=== PATIENT | female | born 1985 | race Caucasian/White ===

== ENCOUNTER 2017-06-25 18:42 | Inpatient (IN) | payer BC ==
[2017-06-25] MEDS ORDERED: LORazepam 1 MG TAB PO STA (19:27)
--- NOTE | 2017-06-25 19:58 | ED ---
General Adult HPI - General Chief complaint: Psychiatric Symptoms Stated complaint: Manic Time Seen by Provider: 06/25/17 18:57 Source: patient Mode of arrival: ambulatory Limitations: no limitations - History of Present Illness Initial comments: Candelaria is a 31-year-old female with past medical history of bipolar and depression who presents to the emergency department today for evaluation of a manic episode. The patient reports that for the past week she has been feeling very high, she reports that she feels overwhelming low been having a store that everybody. She reports that she has been feeling very anxious and agitated, she feels that her heart is racing. She states that she has been acting otherwise is not typical for her. She states that she has been taking extra xanax but feels as though she cannot calm down. She states that she has spent $ 600 this weekend, which is out of character for her. She states that she isnt her self or in control of her emotions and she wants help. - Related Data Home Medications Medication Instructions Recorded Confirmed Loperamide [Imodium] 2 mg PO DIRECTED PRN 07/02/15 06/25/17 Mirtazapine [Remeron] 30 mg PO HS 07/02/15 06/25/17 Omeprazole [PriLOSEC] 40 mg PO DAILY 07/02/15 06/25/17 ALPRAZolam [Xanax] 0.5 mg PO DAILY PRN 06/25/17 06/25/17 ARIPiprazole [Abilify] 5 mg PO DAILY 06/25/17 06/25/17 Allergies Allergy/AdvReac Type Severity Reaction Status Date / Time No Known Allergies Allergy Verified 06/25/17 21:23 Review of Systems ROS Statement: Those systems with pertinent positive or pertinent negative responses have been documented in the HPI. ROS Other: All systems not noted in ROS Statement are negative. Past Medical History Past Medical History: GERD/Reflux, Hypertension Additional Past Medical History / Comment(s): recovering alcoholic, Reynaud's, chronic diarrhea History of Any Multi-Drug Resistant Organisms: None Reported Additional Past Surgical History / Comment(s): egd Past Anesthesia/Blood Transfusion Reactions: No Reported Reaction Past Psychological History: Anxiety, Bipolar, Depression Smoking Status: Current every day smoker Past Alcohol Use History: None Reported Past Drug Use History: None Reported General Exam Limitations: no limitations General appearance: alert, anxious Head exam: Present: atraumatic, normocephalic Eye exam: Present: normal appearance, PERRL, EOMI ENT exam: Present: normal exam Respiratory exam: Absent: respiratory distress Cardiovascular Exam: Present: tachycardia GI/Abdominal exam: Present: soft Rectal exam: Present: deferred Extremities exam: Present: full ROM Neurological exam: Present: alert, oriented X3, normal gait Psychiatric exam: Present: agitated, anxious, manic. Absent: depressed, homicidal ideation, suicidal ideation Skin exam: Present: warm, dry, intact Course Vital Signs 06/25/17 06/25/17 18:50 20:45 Temperature 98 F 98 F Pulse Rate 112 H 68 Respiratory 18 18 Rate Blood Pressure 153/90 137/85 O2 Sat by Pulse 98 98 Oximetry Medical Decision Making - Medical Decision Making Patient seen and evaluated, history obtained from the patient Patient appears manic, denies suicidal or homicidal ideation Breath alcohol negative Cleared for evaluation by psych Psych evaluated the patient, recommends admission to psychiatric facility Patient voluntarily admitted herself to psychiatric facility Transfer orders placed - Lab Data Lab Results 06/25/17 06/25/17 Range/Units 18:56 18:56 Urine Color Light Yellow Urine Appearance Clear (Clear) Urine pH 6.0 (5.0-8.0) Ur Specific [place] 1.010 (1.001-1.035) Urine Protein Negative (Negative) Urine Glucose (UA) Negative (Negative) Urine Ketones Negative (Negative) Urine Blood Negative (Negative) Urine Nitrite Negative (Negative) Urine Bilirubin Negative (Negative) Urine Urobilinogen <2.0 (<2.0) mg/dL Ur Leukocyte Esterase Negative (Negative) Urine HCG, Qual Not Detected (Not Detectd) Urine Opiates Screen Not Detected (NotDetected) Ur Oxycodone Screen Not Detected (NotDetected) Urine Methadone Screen Not Detected (NotDetected) Ur Propoxyphene Screen Not Detected (NotDetected) Ur Barbiturates Screen Not Detected (NotDetected) U Tricyclic Antidepress Not Detected (NotDetected) Ur Phencyclidine Scrn Not Detected (NotDetected) Ur Amphetamines Screen Not Detected (NotDetected) U Methamphetamines Scrn Not Detected (NotDetected) U Benzodiazepines Scrn Detected H (NotDetected) Urine Cocaine Screen Not Detected (NotDetected) U Marijuana (THC) Screen Not Detected (NotDetected) Disposition Clinical Impression: Acute anxiety Disposition: TRANSFER TO PSYCH HOSP/UNIT Is patient prescribed a controlled substance at d/c from ED?: No - Out of Hospital Transfer - Req. Specs Out of Hospital Transfer - Requested Specifics: Other Non-Acute (psychiatric)
[2017-06-25 20:00] LABS: Appearance,Urine Clear (Clear); Bilirubin,Urine Negative (Negative); Blood,Urine Negative (Negative); Color,Urine Light Yellow; Glucose,Urine (UA) Negative (Negative); Ketones,Urine Negative (Negative); Leukocyte Esterase,Urine Negative (Negative); Nitrite,Urine Negative (Negative); Protein,Urine Negative (Negative); Urobilinogen,Urine <2.0 mg/dL (<2.0)
[2017-06-25 20:12] LABS: Amphetamine Screen,Urine Not Detected (NotDetected); Barbiturate Screen,Urine Not Detected (NotDetected); Benzodiazepines Screen,Urine Detected (NotDetected); Cocaine Screen,Urine Not Detected (NotDetected); Methadone Screen, Urine Not Detected (NotDetected); Opiate Screen,Urine Not Detected (NotDetected); Oxycodone Screen, Urine Not Detected (NotDetected); Phencyclidine Screen,Urine Not Detected (NotDetected); Tricyclic Antidepressant,Urine Not Detected (NotDetected); Urn Cannabinoid Scrn Not Detected (NotDetected)
[2017-06-25] MEDS ORDERED: MAGNESIUM HYDROXIDE 2,400 MG/10 ML CUP PO PRN (22:27)
[2017-06-25] MEDS ORDERED: MAG HYDROX/AL HYDROX/SIMETH 30 ML CUP PO PRN (22:27)
[2017-06-25] MEDS ORDERED: LOPERAMIDE 2 MG CAP PO PRN (22:29)
[2017-06-25] MEDS: LORazepam 1 MG TAB PO PRN (23:01)
[2017-06-26] MEDS: ACETAMINOPHEN TAB 325 MG TAB PO PRN (01:45)
[2017-06-26] MEDS: NICOTINE 7MG/24HR PATCH TRANSDERM SCH (08:21)
[2017-06-26] MEDS: PANTOPRAZOLE 40 MG TABLET PO SCH (08:21)
[2017-06-26] MEDS: LORazepam 1 MG TAB PO PRN ×2 (08:21→14:35)
[2017-06-26] MEDS: NON-FORMULARY DRUG PO SCH (08:22)
[2017-06-26] MEDS ORDERED: [UNRECOGNIZED DRUG - OTHER] PO SCH (09:00)
[2017-06-26] MEDS ORDERED: ARIPiprazole 5 MG TAB PO SCH (09:00)
[2017-06-26] MEDS ORDERED: MD COMMUNICATION TO PHARMACY 1 EACH MISC PO SCH (09:00)
[2017-06-26 09:29] LABS: Basophils % (A) 0 %; Eosinophils # (A) 0.1 k/uL (0-0.7); Eosinophils % (A) 1 %; HCT 40.9 % (34.0-46.0); HGB 13.9 gm/dL (11.4-16.0); Lymphocytes % (A) 30 %; MCH 28.7 pg (25.0-35.0); MCHC 34.1 g/dL (31.0-37.0); MCV 84.1 fL (80.0-100.0); Mean Platelet Volume 6.7; Monocytes # (A) 0.3 k/uL (0-1.0); Monocytes % (A) 4 %; Neutrophils # (A) 4.2 k/uL (1.3-7.7); Neutrophils % (A) 63 %; Platelet Count 220 k/uL (150-450); RBC 4.86 m/uL (3.80-5.40); RDW 11.8 % (11.5-15.5); WBC 6.7 k/uL (3.8-10.6)
[2017-06-26 09:41] LABS: ALT 15 U/L (9-52); AST 17 U/L (14-36); Albumin 4.2 g/dL (3.5-5.0); Alkaline Phosphatase 55 U/L (38-126); Anion Gap 13 mmol/L; Blood Urea Nitrogen 10 mg/dL (7-17); Calcium 9.4 mg/dL (8.4-10.2); Carbon Dioxide 24 mmol/L (22-30); Chloride 105 mmol/L (98-107); Cholesterol 189 mg/dL (<200); Glucose 104 mg/dL (74-99); HDL Cholesterol 56 mg/dL (40-60); LDL Cholesterol,Calculated 98 mg/dL (0-99); Potassium 4.4 mmol/L (3.5-5.1); Sodium 142 mmol/L (137-145); Total Bilirubin 0.4 mg/dL (0.2-1.3); Total Protein 6.8 g/dL (6.3-8.2); Triglycerides 175 mg/dL (<150)
--- NOTE | 2017-06-26 13:02 | CONS ---
CONSULTATION REASON FOR CONSULTATION: Advice regarding GERD, hypertension and other medical issues requested by Psychiatry. HISTORY OF PRESENT ILLNESS: This is a 31-year-old woman with a past history of GERD, hypertension, history of EtOH, Raynaud's phenomenon, IBS, chronic diarrhea, bipolar, anxiety, depression being followed by Reena Elizabeth at Dr. Freeman's office. Admitted for a psychiatric evaluation. There is no history of fever or rigors. There is no history of headache, loss of consciousness, chest pain, palpitation at this time. PAST MEDICAL HISTORY: History of GERD, hypertension, history of EtOH, history of Raynaud's phenomenon, IBS. MEDICATIONS: Prior to admission include home medications are: 1. Prilosec 20 mg p.o. daily. 2. Imodium 2 mg p.r.n. 3. Xanax 0.5 daily p.r.n. 4. Remeron 30 mg q.h.s. 5. Abilify 5 mg p.o. daily. ALLERGIES: None. FAMILY HISTORY: No history of heart disease or strokes in the family. SOCIAL HISTORY: Remote history of alcohol, history of smoking. REVIEW OF SYSTEMS: ENT: No diminished hearing or vision. CARDIOVASCULAR: No angina. RESPIRATORY: No cough or hemoptysis. GI: No nausea. : No dysuria. NERVOUS SYSTEM: No numbness or weakness. ALLERGY/IMMUNOLOGY: No asthma or hypothyroidism. MUSCULOSKELETAL: As mentioned earlier. HEMATOLOGY/ONCOLOGY: No history of anemia. ENDOCRINE: Patient has low cortisol levels, being evaluated by a automotive fuel systems converter, Dr. Dawson. CONSTITUTIONAL: As mentioned number: DERMATOLOGY: Negative. RHEUMATOLOGY: Negative. PSYCHIATRY: As mentioned earlier. PHYSICAL EXAMINATION: Alert oriented x3. Pulse is 98, blood pressure 140/80, respirations 16, temp 98.1, pulse ox 98% on room air. HEENT: Conjunctivae normal. Oral mucosa moist. Neck is no jugular venous distention. No thyroid enlargement. CARDIOVASCULAR SYSTEM: S1, S2, muffled. RESPIRATION: Breath sounds diminished at the bases. No rhonchi. No crackles. ABDOMEN: Soft, nontender. No mass palpable. LEGS: No edema, no swelling. NERVOUS SYSTEM: Higher functions as mentioned earlier. Moves all 4 limbs. No focal motor deficits. LYMPHATICS: No lymph node enlargement in the neck. SKIN: No ulcer, rash or bleeding. LABS: CBC, CMP within normal limits and triglycerides 125. TSH of 1.46. ASSESSMENT: 1. Labile hypertension. 2. Depression. 3. Gastroesophageal reflux disease. 4. Remote history of Ethyl alcohol. 5. History of nicotine dependence. 6. History of irritable bowel syndrome. 7. History of low cortisol levels. 8. Anxiety, bipolar depression. RECOMMENDATIONS AND DISCUSSION: In this 31-year-old woman who presented with multiple medical issues, at this time I recommend to continue current medical management. I would recommend resume the home medications and otherwise I would also recommend continue the patient's evaluation for low cortisol levels and hypoglycemia in the outpatient setting with automotive fuel systems converter, Dr. Dawson. Other than that, I would recommend close follow up with Reena Elizabeth in the outpatient setting. Will follow the patient closely with you. Thank you, Dr. Campbell for letting us participate in the care of this patient. MMMASOODL / MARSHALN: [id number] /
[2017-06-26] MEDS ORDERED: hydrOXYzine PAMOATE 25 MG CAP PO PRN (14:26)
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
[2017-06-26 18:54] LABS: Hemoglobin A1C 4.6 % (4.0-6.0)
[2017-06-26] MEDS: MELATONIN 3 MG TABLET PO SCH (20:44)
[2017-06-27] MEDS: NON-FORMULARY DRUG PO SCH (08:17)
[2017-06-27] MEDS: PANTOPRAZOLE 40 MG TABLET PO SCH (08:17)
[2017-06-27] MEDS: ARIPiprazole 10 MG TAB PO SCH (08:17)
[2017-06-27] MEDS: NICOTINE 7MG/24HR PATCH TRANSDERM SCH (08:17)
[2017-06-27] MEDS: ACETAMINOPHEN TAB 325 MG TAB PO PRN ×2 (08:19→17:29)
[2017-06-27] MEDS: LORazepam 1 MG TAB PO PRN ×2 (10:23→20:31)
--- NOTE | 2017-06-27 11:54 | P.PN ---
Progress Note - Text Progress Note Date: 06/27/17 Interval History: Patient is a 31-year-old female who reports that she is not feeling as depressed, states she slept about 4 hours last night was up and down to the night. She states that she continues to have racing thoughts and has trouble focusing especially when watching television. Patient states she is able to focus in groups. 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 Patient states her energy level has decreased and she is not feeling as though she needs to be up doing things constantly. Patient states that she's been attending some groups and activities. Mental Status: Appearance/Attitude: Patient is casually dressed, was found sleeping in her room and came to the interview room and was cooperative. Behavior: Patient does not display any psychomotor agitation or retardation. Speech/Language: Speech is spontaneous of normal volume and rhythm and she is coherent. Thought Process: Patient is goal-directed there is no evidence of loose association or flight of ideas, patient does state that her thoughts still race. Thought Content: Patient denies auditory or visual hallucinations and no delusions or paranoid ideation were elicited. Patient states that she didn't sleep well last night was up and down but slept about 4 hours. She states that she continues to have racing thoughts but is not feeling as though she has a lot of energy and needs to be up at night doing things. Patient reports that her appetite is good. Suicidal/Homicidal Ideation: Patient denies any current suicidal or homicidal ideation Sensorium/Cognition: Patient is alert and oriented to person, place, and time and recent and remote memory are grossly intact patient states that she continues to have difficulty focusing while watching TV but has been able to focus in groups. Mood/Affect: Patient reports that she is no longer feeling depressed and her affect is appropriate Insight/Judgment: Patient's insight and judgment are fair Assessment: Patient reports that she had difficulty sleeping last night and only slept about 4 hours but is not reporting any increase in her energy or the need to get up and do things at night. She states that she continues to have racing thoughts and difficulty focusing when she is watching television. She states that she is no longer feeling depressed and no suicidal ideation. Patient states that her difficulty sleeping is that she is always taking something to knock her out. Patient states that she had difficulty with comprehension when she was in school and was held back a year prior to first grade but was never diagnosed with ADD. Patient reports no side effects from the medication. Plan: Will continue on Abilify 10 mg to target her mood and melatonin 3 mg at bedtime to assist with sleep. Patient and I reviewed good sleep hygiene. Patient continues to require hospitalization to further stabilize her mood.
[2017-06-27] MEDS: MELATONIN 3 MG TABLET PO SCH (20:31)
[2017-06-28] MEDS: LORazepam 1 MG TAB PO PRN ×2 (01:54→12:00)
[2017-06-28 07:57] VITALS: TEMP 98.1
[2017-06-28] MEDS: NICOTINE 7MG/24HR PATCH TRANSDERM SCH (08:00)
[2017-06-28] MEDS: PANTOPRAZOLE 40 MG TABLET PO SCH (08:00)
[2017-06-28] MEDS: ARIPiprazole 10 MG TAB PO SCH (08:00)
[2017-06-28] MEDS: NON-FORMULARY DRUG PO SCH (08:03)
--- NOTE | 2017-06-28 11:56 | P.DS ---
Providers Date of admission: 06/25/17 20:31 Expected date of discharge: 06/28/17 Attending physician: Shanell Campbell MD Consults: 06/25/17 22:27 Consult Physician Routine Consulting Provider: Hannha Tobias Consult Reason/Comments: Medical Management Do you want consulting provider notified?: Yes, Notify in am Primary care physician: Augusta Gill [facility] Course: Discharge Diagnosis: Bipolar disorder type I, current episode hypomanic with mixed features Reason for Admission: Patient is a 31-year-old female who reports that she came to the hospital because she had not been sleeping for 1 week as well as spending a lot of money was up at night cleaning and felt that her medications needed to be adjusted. States she was also having suicidal thoughts. Patient states that for the last week she has not been able to sleep, she states that she has not been well-organized and has been up at night cleaning. She states that other people have reported that she's been talking too fast and she states that she impulsively spent $500 at a spot. She states that her ideas jumping from one topic to another and that she's had difficulty at work organizing herself. She states that she is paranoid that people were following her. She states that she is feeling depressed and irritable and has been having suicidal thoughts with no plan or intent to act. She describes that since the age of 18 she is been having symptoms similar to the above which she describes as periods of depression where she does not care for her ADLs, has decreased energy and motivation as well as poor sleep but feels tired. She states that those times she has had suicidal thoughts as well as feeling irritable. She states that this alternates with periods where she doesn't sleep and has a lot of energy, is up at night cleaning, with racing thoughts and impulsive spending. She also reports a history of anxiety with shortness of breath increased heart rate in fear of leaving the house. The unknown and feeling fidgety. She states that she's had suicide attempts in the past one time 7 years ago on Motrin combined with alcohol. Patient states that she was also using alcohol in the past, a fifth a day. Patient states that she has been on and off with her medication the most consistently she's ever taken meds were for 3 years. She reports being tried on Lexapro, Lamictal, Effexor, Remeron, Xanax, Klonopin, Abilify, Zoloft, Celexa and most recently her medications been prescribed by her primary care physician. She states that she was in counseling when she was 18 years of age and was placed on medication at that time. Patient states that the time she 's been placed on antidepressants she is really never felt less depressed but more agitated and irritable. She is unable to recount how she did when she was on Lamictal. She states her current medications were begun by her primary care doctor and they are Xanax 0.5 mg a day, Abilify 5 mg daily and Remeron 30 mg at bedtime. She states that 2 months ago she began seeing a counselor at [facility] and was waiting to be seen by their prescriber. Patient does not endorse any history of auditory hallucinations, visual hallucinations and no symptoms of OCD. Mental status on Admission: Appearance/Attitude: Patient is appropriately dressed, makes good eye contact and is cooperative. Behavior: Patient does not exhibit any psychomotor agitation or retardation. Speech/Language: Patient's speech is spontaneous of normal volume and rhythm and she is coherent. Thought Process: Agent is goal-directed, she does report racing thoughts and there is no evidence of loose association or flight of ideas Thought Content: Patient denies any auditory or visual hallucinations and no delusions were elicited. Patient does state that she feels paranoid that people are following him. Patient states that she has racing thoughts and jumps from one idea to another as well as not sleeping well and having a lot of energy. She states that she was up at night cleaning. She also reports that she has had an increased heart rate and feels that her eyes twitching. Patient states that she was impulsively spending money. Suicidal/Homicidal Ideation: Patient states that she has suicidal thoughts but no plan or intent to act and no current homicidal ideation Sensorium/Cognition: Patient is alert and oriented to person, place, and time and her recent and remote memory are grossly intact. Mood/Affect: Patient's mood is irritable, anxious and her affect is appropriate Insight/Judgment: Patient's insight and judgment are fair Hospital Course: Patient was admitted on a voluntary basis, placed on routine observation in group and activity therapy were ordered. Patient also had routine laboratory studies and a medical consultation. Patient and I discussed her diagnosis and the fact that while she been placed on antidepressants in the past her symptoms have worsened or she become more irritable and agitated. Patient and I discussed continuing the Abilify but increasing it to 10 mg to target her mood symptoms. Patient was also placed on melatonin 3 mg at bedtime to assist with her sleep. Patient reports that with the increase in the Abilify her racing thoughts decreased, her focus improved and she was able to read. She reported no further suicidal thoughts, her mood had improved and she was no longer feeling depressed and anxious. Patient felt that she was stable enough to return home. Patient was also continued on her Imodium as needed, and medication for GERD. Allergies No Known Allergies Allergy (Verified 06/25/17 21:23) Laboratory Last Values WBC 6.7 k/uL (3.8-10.6) 06/26/17 09:05 RBC 4.86 m/uL (3.80-5.40) 06/26/17 09:05 Hgb 13.9 gm/dL (11.4-16.0) 06/26/17 09:05 Hct 40.9 % (34.0-46.0) 06/26/17 09:05 MCV 84.1 fL (80.0-100.0) 06/26/17 09:05 MCH 28.7 pg (25.0-35.0) 06/26/17 09:05 MCHC 34.1 g/dL (31.0-37.0) 06/26/17 09:05 RDW 11.8 % (11.5-15.5) 06/26/17 09:05 Plt Count 220 k/uL (150-450) 06/26/17 09:05 Neutrophils % 63 % 06/26/17 09:05 Lymphocytes % 30 % 06/26/17 09:05 Monocytes % 4 % 06/26/17 09:05 Eosinophils % 1 % 06/26/17 09:05 Basophils % 0 % 06/26/17 09:05 Neutrophils # 4.2 k/uL (1.3-7.7) 06/26/17 09:05 Lymphocytes # 2.0 k/uL (1.0-4.8) 06/26/17 09:05 Monocytes # 0.3 k/uL (0-1.0) 06/26/17 09:05 Eosinophils # 0.1 k/uL (0-0.7) 06/26/17 09:05 Basophils # 0.0 k/uL (0-0.2) 06/26/17 09:05 Sodium 142 mmol/L (137-145) 06/26/17 09:05 Potassium 4.4 mmol/L (3.5-5.1) 06/26/17 09:05 Chloride 105 mmol/L (98-107) 06/26/17 09:05 Carbon Dioxide 24 mmol/L (22-30) 06/26/17 09:05 Anion Gap 13 mmol/L 06/26/17 09:05 BUN 10 mg/dL (7-17) 06/26/17 09:05 Creatinine 0.72 mg/dL (0.52-1.04) 06/26/17 09:05 Est GFR (CKD-EPI)AfAm >90 (>60 ml/min/1.73 sqM) 06/26/17 09:05 Est GFR (CKD-EPI)NonAf >90 (>60 ml/min/1.73 sqM) 06/26/17 09:05 Glucose 104 mg/dL (74-99) H 06/26/17 09:[address] Glu mg/dL 85 06/26/17 09:05 Hemoglobin A1c 4.6 % (4.0-6.0) 06/26/17 09:05 Calcium 9.4 mg/dL (8.4-10.2) 06/26/17 09:05 Total Bilirubin 0.4 mg/dL (0.2-1.3) 06/26/17 09:05 AST 17 U/L (14-36) 06/26/17 09:05 ALT 15 U/L (9-52) 06/26/17 09:05 Alkaline Phosphatase 55 U/L (38-126) 06/26/17 09:05 Total Protein 6.8 g/dL (6.3-8.2) 06/26/17 09:05 Albumin 4.2 g/dL (3.5-5.0) 06/26/17 09:05 Triglycerides 175 mg/dL (<150) H 06/26/17 09:05 Cholesterol 189 mg/dL (<200) 06/26/17 09:05 LDL Cholesterol, Calc 98 mg/dL (0-99) 06/26/17 09:05 HDL Cholesterol 56 mg/dL (40-60) 06/26/17 09:05 TSH 1.400 mIU/L (0.465-4.680) 06/26/17 09:05 Urine Color Light Yellow 06/25/17 18:56 Urine Appearance Clear (Clear) 06/25/17 18:56 Urine pH 6.0 (5.0-8.0) 06/25/17 18:56 Ur Specific [place] 1.010 (1.001-1.035) 06/25/17 18:56 Urine Protein Negative (Negative) 06/25/17 18:56 Urine Glucose (UA) Negative (Negative) 06/25/17 18:56 Urine Ketones Negative (Negative) 06/25/17 18:56 Urine Blood Negative (Negative) 06/25/17 18:56 Urine Nitrite Negative (Negative) 06/25/17 18:56 Urine Bilirubin Negative (Negative) 06/25/17 18:56 Urine Urobilinogen <2.0 mg/dL (<2.0) 06/25/17 18:56 Ur Leukocyte Esterase Negative (Negative) 06/25/17 18:56 Urine HCG, Qual Not Detected (Not Detectd) 06/25/17 18:56 Urine Opiates Screen Not Detected (NotDetected) 06/25/17 18:56 Ur Oxycodone Screen Not Detected (NotDetected) 06/25/17 18:56 Urine Methadone Screen Not Detected (NotDetected) 06/25/17 18:56 Ur Propoxyphene Screen Not Detected (NotDetected) 06/25/17 18:56 Ur Barbiturates Screen Not Detected (NotDetected) 06/25/17 18:56 U Tricyclic Antidepress Not Detected (NotDetected) 06/25/17 18:56 Ur Phencyclidine Scrn Not Detected (NotDetected) 06/25/17 18:56 Ur Amphetamines Screen Not Detected (NotDetected) 06/25/17 18:56 U Methamphetamines Scrn Not Detected (NotDetected) 06/25/17 18:56 U Benzodiazepines Scrn Detected (NotDetected) H 06/25/17 18:56 Urine Cocaine Screen Not Detected (NotDetected) 06/25/17 18:56 U Marijuana (THC) Screen Not Detected (NotDetected) 06/25/17 18:56 Discharge Mental Status: Appearance/Attitude: Patient is casually dressed, makes good eye contact and is cooperative. Behavior: Patient does not exhibit any psychomotor agitation or retardation. Speech/Language: Patient's speech is spontaneous and normal volume and rhythm and she is coherent. Thought Process: Patient is goal-directed there is no evidence of loose association or flight of ideas and she states her thoughts are no longer racing. Thought Content: Patient denies any auditory or visual hallucinations no delusions or paranoid ideation is elicited. Patient reports no racing thoughts states that she is able to sit and read. She reports that she is sleeping and eating well. She reports that her mood is improved and she is no longer feeling irritable or on edge. Suicidal/Homicidal Ideation: Patient denies any current suicidal or homicidal ideation. Sensorium/Cognition: patient is alert and oriented to person, place, and time and her recent and remote memory are grossly intact Mood/Affect: patient's mood is more stable, she reports no longer feeling depressed and her affect is appropriate Insight/Judgment: patient's insight and judgment are intact Risk Assessment: Patient's risk for self harm is low is interested in outpatient treatment , has maintained her sobriety Discharge Plan: patient will return home to live with her , she will continue on Abilify 10 mg in the morning and melatonin 3 mg at bedtime. I reviewed good sleep hygiene with the patient and recommended that she avoid any alcohol or drugs. Patient was encouraged to continue attending AA meetings. Patient was encouraged to follow up at [facility] and be compliant with medication and appointments. Patient Condition at Discharge: Stable Plan - Discharge Summary Discharge Rx Participant: No New Discharge Prescriptions: New ARIPiprazole [Abilify] 10 mg PO DAILY #14 tab Melatonin 3 mg PO HS #28 tablet Continue Omeprazole [PriLOSEC] 20 mg PO DAILY Loperamide [Imodium] 2 mg PO DIRECTED PRN PRN Reason: Diarrhea Non-Formulary Drug [Non Formulary Drug] 1 each PO ONCE Discontinued Mirtazapine [Remeron] 30 mg PO HS ARIPiprazole [Abilify] 5 mg PO DAILY ALPRAZolam [Xanax] 0.5 mg PO DAILY PRN PRN Reason: Anxiety Discharge Medication List Loperamide [Imodium] 2 mg PO DIRECTED PRN 07/02/15 [History] Omeprazole [PriLOSEC] 20 mg PO DAILY 07/02/15 [History] Non-Formulary Drug [Non Formulary Drug] 1 each PO ONCE 06/25/17 [History] ARIPiprazole [Abilify] 10 mg PO DAILY #14 tab 06/28/17 [Rx] Melatonin 3 mg PO HS #28 tablet 06/28/17 [Rx] Follow up Appointment(s)/Referral(s): Fabien Lindo [Outside] - 07/10/17 6:00 pm (soonest available, only in office Monday's and Monday's ) Augusta Freeman III, MD [Primary Care Provider] - 1-2 days Discharge Disposition: HOME SELF-CARE
[2017-06-28 12:10] VITALS: BP 127/82; PULSE 92; RESP 20
== END 2017-06-28 13:53 | disposition home or self-care (01) | DRG 885 ==
LOC: EC 18:42 → 3MHU 20:31
PROVIDERS: ADMIT Psychiatry & Neurology Psychiatry; ATTEND Psychiatry & Neurology Psychiatry
DX: F31.0 Bipolar disorder, current episode hypomanic (principal); R45.851 Suicidal ideations; F41.9 Anxiety disorder, unspecified; K21.9 Gastro-esophageal reflux disease without esophagitis; K58.0 Irritable bowel syndrome with diarrhea; I10 Essential (primary) hypertension; F17.200 Nicotine dependence, unspecified, uncomplicated; I73.00 Raynaud's syndrome without gangrene; Z91.5 Personal history of self-harm; Z79.899 Other long term (current) drug therapy; Z81.8 Family history of other mental and behavioral disorders
CPT/HCPCS: 80053; 80061; 80306; 81003; 81025; 82075; 83036; 84443; 85025; 99285

== ENCOUNTER → 2018-01-09 | Outpatient (CLI) | payer BC | END | disposition home or self-care (01) | LOC: LABWHC1 16:19 | PROVIDERS: ATTEND Physician Assistant Medical | DX: Z53.9 Procedure and treatment not carried out, unspecified reason (principal) ==

== ENCOUNTER → 2018-01-09 | Outpatient (CLI) | payer BC ==
[2018-01-09 09:07] LABS: Basophils % (A) 0 %; Eosinophils # (A) 0.1 k/uL (0-0.7); Eosinophils % (A) 2 %; HCT 43.8 % (34.0-46.0); HGB 14.6 gm/dL (11.4-16.0); Lymphocytes # (A) 2.1 k/uL (1.0-4.8); Lymphocytes % (A) 32 %; MCH 28.1 pg (25.0-35.0); MCHC 33.3 g/dL (31.0-37.0); MCV 84.2 fL (80.0-100.0); Mean Platelet Volume 6.2; Monocytes # (A) 0.2 k/uL (0-1.0); Monocytes % (A) 3 %; Neutrophils % (A) 61 %; Platelet Count 239 k/uL (150-450); RDW 12.4 % (11.5-15.5); WBC 6.6 k/uL (3.8-10.6)
--- NOTE | 2018-01-09 13:05 | XR ---
EXAMINATION TYPE: XR chest 2V DATE OF EXAM: 01/09/2018 COMPARISON: Prior chest x-ray 12/18/2012 HISTORY: Insomnia TECHNIQUE: Frontal and lateral views of the chest are obtained. FINDINGS: There is no focal air space opacity, pleural effusion, or pneumothorax seen. The cardiac silhouette size is within normal limits. The osseous structures are intact. IMPRESSION: No acute cardiopulmonary process.
[2018-01-09 18:03] LABS: DNA Double-Stranded NEGATIVE (NEGATIVE); EBV-VCA (IgG) <0.2 AI
[2018-01-09 18:23] LABS: Protein, Total 6.7 g/dL (6.2-8.2); Rheumatoid Factor 7 IU/mL (0-15)
[2018-01-09 18:31] LABS: ALT 21 U/L (8-44); AST 20 U/L (13-35); Alkaline Phosphatase 76 U/L (41-126); C Reactive Protein <0.4 mg/dL (0.0-0.8); Calcium 9.4 mg/dL (8.7-10.3); Carbon Dioxide 23.8 mmol/L (21.6-31.8); Chloride 106 mmol/L (96-109); Glucose 86 mg/dL (70-110); Potassium 4.7 mmol/L (3.5-5.5); Sodium 139 mmol/L (135-145); Total Bilirubin 0.4 mg/dL (0.3-1.2); Total Protein 6.6 g/dL (6.2-8.2)
[2018-01-09 19:16] LABS: Vitamin D 25 Hydroxy 8.1 ng/mL (30.0-100.0)
[2018-01-10 13:34] LABS: Albumin 4.22 g/dL (3.80-4.90); Gamma Globulin 0.77 g/dL (0.70-1.50)
[2018-01-11 08:43] LABS: Vitamin B1 75 ug/L (38-122)
[2018-01-12 09:36] LABS: Bartonella henselae Ab, IgG <1:64; Bartonella henselae Ab, IgM < 1:16
== END | disposition home or self-care (01) ==
LOC: LABWHC1 07:56
PROVIDERS: ATTEND Physician Assistant Medical
DX: R50.9 Fever, unspecified (principal); G47.00 Insomnia, unspecified
CPT/HCPCS: 36415; 71046; 80053; 82175; 82306; 82533; 82728; 84080; 84165; 84425; 85025; 86140; 86225; 86431; 86611; 86644; 86645; 86663; 86664; 86665; 87086

== ENCOUNTER 2018-09-02 17:41 | Emergency (ER) | payer BC ==
[2018-09-02 18:44] VITALS: RESP 18
[2018-09-02] MEDS ORDERED: SODIUM CHLORIDE 0.9% 1,000 ML IV STA (19:26)
--- NOTE | 2018-09-02 19:52 | ED ---
Abdominal Pain HPI - General Source: patient Mode of arrival: ambulatory Limitations: no limitations <Safia Vance - Last Filed: 09/02/18 22:54> <Candelaria Cardenas - Last Filed: 09/04/18 06:08> - General Chief Complaint: Abdominal Pain Stated Complaint: Black diarrhea Time Seen by Provider: 09/02/18 19:03 - History of Present Illness Initial Comments: Patient is a 32-year-old female with past history of IBS presented to the emergency Department with complaints of diarrhea for the last 5 days. Patient states the last few days her diarrhea was black in color. Patient states been having generalized abdominal pain as well as nausea on and off. Patient denies nausea at this time. Patient states she usually does not have diarrhea for this long. Patient denies any recent changes in her medications. Patient denies recent travel, recent antibiotic use. Patient states she has been eating the BRAT diet the last 3 days and its not helping. Patient denies any fever, chills, chest pain. Patient denies any abdominal surgeries in the past. No other complaints at this time. (Safia Vance) - Related Data Home Medications Medication Instructions Recorded Confirmed Loperamide [Imodium] 2 mg PO DIRECTED PRN 07/02/15 06/25/17 Omeprazole [PriLOSEC] 20 mg PO DAILY 07/02/15 06/25/17 Non-Formulary Drug [Non Formulary 1 each PO ONCE 06/25/17 06/25/17 Drug] Previous Rx's Medication Instructions Recorded ARIPiprazole [Abilify] 10 mg PO DAILY #14 tab 06/28/17 Melatonin 3 mg PO HS #28 tablet 06/28/17 Diphenoxylate HCl/Atropine 1 tab PO BID PRN 5 Days #20 tab 09/02/18 [Lomotil 2.5-0.025 mg Tablet] Allergies Allergy/AdvReac Type Severity Reaction Status Date / Time No Known Allergies Allergy Verified 09/02/18 18:44 Review of Systems ROS Other: All systems not noted in ROS Statement are negative. <Safia Vance - Last Filed: 09/02/18 22:54> ROS Other: All systems not noted in ROS Statement are negative. <Candelaria Cardenas - Last Filed: 09/04/18 06:08> ROS Statement: Those systems with pertinent positive or pertinent negative responses have been documented in the HPI. Past Medical History Past Medical History: GERD/Reflux, Hypertension Additional Past Medical History / Comment(s): recovering alcoholic, Reynaud's, chronic diarrhea History of Any Multi-Drug Resistant Organisms: None Reported Additional Past Surgical History / Comment(s): egd Past Anesthesia/Blood Transfusion Reactions: No Reported Reaction Past Psychological History: Anxiety, Bipolar, Depression Smoking Status: Current every day smoker Past Alcohol Use History: None Reported Past Drug Use History: None Reported <Safia Vance - Last Filed: 09/02/18 22:54> General Exam Limitations: no limitations <Safia Vance - Last Filed: 09/02/18 22:54> - General Exam Comments Initial Comments: GENERAL: Well-appearing, well-nourished and in no acute distress. HEAD: Atraumatic, normocephalic. EYES: Pupils equal round and reactive to light, extraocular movements intact, sclera anicteric, conjunctiva are normal. ENT: TMs normal, nares patent, oropharynx clear without exudates. Moist mucous membranes. NECK: Normal range of motion, supple without lymphadenopathy or JVD. LUNGS: Breath sounds clear to auscultation bilaterally and equal. No wheezes rales or rhonchi. HEART: Regular rate and rhythm without murmurs, rubs or gallops. ABDOMEN: Generalized abdominal tenderness, Soft, hyperactive bowel sounds. No guarding, no rebound. No masses appreciated. : Deferred EXTREMITIES: Normal range of motion, no pitting or edema. No clubbing or cya nosis. NEUROLOGICAL: Cranial nerves II through XII grossly intact. Normal speech, normal gait. PSYCH: Normal mood, normal affect. SKIN: Warm, Dry, normal turgor, no rashes or lesions noted. (Safia Vance) Course Vital Signs 09/02/18 09/02/18 18:42 23:05 Temperature 98.9 F 98.8 F Pulse Rate 109 H 98 Respiratory 18 18 Rate O2 Sat by Pulse 100 99 Oximetry Procedures - Stool Hemoccult Hemoccult result: negative <Safia Vance - Last Filed: 09/02/18 22:54> Medical Decision Making - Lab Data Result diagrams: 09/02/18 20:16 09/02/18 20:16 <Safia Vance - Last Filed: 09/02/18 22:54> - Lab Data Result diagrams: 09/02/18 20:16 09/02/18 20:16 <Candelaria Cardenas - Last Filed: 09/04/18 06:08> - Medical Decision Making Patient is a 32-year-old female with history of IBS presenting with 5 days of diarrhea. Patient states last few days the diarrhea was black in color. Patient also admits to generalized abdominal pain and nausea on and off. Patient denies fever, chills, vomiting, specific abdominal pain. On exam patient has generalized abdominal tenderness. The rest of exam is normal. CBC, CMP are within normal limits. Stool occult blood and C. diff are both negative. KUB shows scattered small air-fluid levels consistent with diarrhea. No evidence of bowel obstruction or no other abnormalities. Patient will be discharged home with a trial of Lomotil and given a referral for GI. Patient was not happy with this and states that "we did not figure out anything." I explained that there was nothing emergent to keep her here and that she should follow up with GI in the morning. Case was discussed with Dr. Cardenas. Return parameters were discussed with patient. (Safia Vance) I was available for consultation in the emergency department. The history and physical exam were done by the midlevel provider. I was consulted for this patient's care. I reviewed the case with the midlevel provider and based on their presentation of the patient, I agree with the assessment, medical decision making and plan of care as documented. Chart was dictated using [employer] dictation software. Attempts were made to correct any dictation errors however some typographical errors may persist. (Candelaria Cardenas) - Lab Data Lab Results 09/02/18 09/02/18 09/02/18 Range/Units 20:16 20:16 20:16 WBC 9.4 (3.8-10.6) k/uL RBC 5.22 (3.80-5.40) m/uL Hgb 15.2 (11.4-16.0) gm/dL Hct 43.6 (34.0-46.0) % MCV 83.5 (80.0-100.0) fL MCH 29.0 (25.0-35.0) pg MCHC 34.8 (31.0-37.0) g/dL RDW 15.0 (11.5-15.5) % Plt Count 265 (150-450) k/uL Neutrophils % 64 % Lymphocytes % 30 % Monocytes % 5 % Eosinophils % 0 % Basophils % 0 % Neutrophils # 6.0 (1.3-7.7) k/uL Lymphocytes # 2.8 (1.0-4.8) k/uL Monocytes # 0.4 (0-1.0) k/uL Eosinophils # 0.0 (0-0.7) k/uL Basophils # 0.0 (0-0.2) k/uL Sodium 143 (137-145) mmol/L Potassium 4.0 (3.5-5.1) mmol/L Chloride 107 (98-107) mmol/L Carbon Dioxide 22 (22-30) mmol/L Anion Gap 14 mmol/L BUN 10 (7-17) mg/dL Creatinine 1.03 (0.52-1.04) mg/dL Est GFR (CKD-EPI)AfAm 84 (>60 ml/min/1.73 sqM) Est GFR (CKD-EPI)NonAf 73 (>60 ml/min/1.73 sqM) Glucose 76 (74-99) mg/dL Calcium 9.9 (8.4-10.2) mg/dL Total Bilirubin 0.5 (0.2-1.3) mg/dL AST 22 (14-36) U/L ALT 18 (9-52) U/L Alkaline Phosphatase 78 (38-126) U/L Total Protein 8.3 H (6.3-8.2) g/dL Albumin 5.2 H (3.5-5.0) g/dL Urine Color Urine Appearance (Clear) Urine pH (5.0-8.0) Ur Specific [place] (1.001-1.035) Urine Protein (Negative) Urine Glucose (UA) (Negative) Urine Ketones (Negative) Urine Blood (Negative) Urine Nitrite (Negative) Urine Bilirubin (Negative) Urine Urobilinogen (<2.0) mg/dL Ur Leukocyte Esterase (Negative) Stool Occult Blood Negative (Negative) C. difficile (EIA) Intrp (Negative) 09/02/18 09/02/18 Range/Units 20:16 22:22 WBC (3.8-10.6) k/uL RBC (3.80-5.40) m/uL Hgb (11.4-16.0) gm/dL Hct (34.0-46.0) % MCV (80.0-100.0) fL MCH (25.0-35.0) pg MCHC (31.0-37.0) g/dL RDW (11.5-15.5) % Plt Count (150-450) k/uL Neutrophils % % Lymphocytes % % Monocytes % % Eosinophils % % Basophils % % Neutrophils # (1.3-7.7) k/uL Lymphocytes # (1.0-4.8) k/uL Monocytes # (0-1.0) k/uL Eosinophils # (0-0.7) k/uL Basophils # (0-0.2) k/uL Sodium (137-145) mmol/L Potassium (3.5-5.1) mmol/L Chloride (98-107) mmol/L Carbon Dioxide (22-30) mmol/L Anion Gap mmol/L BUN (7-17) mg/dL Creatinine (0.52-1.04) mg/dL Est GFR (CKD-EPI)AfAm (>60 ml/min/1.73 sqM) Est GFR (CKD-EPI)NonAf (>60 ml/min/1.73 sqM) Glucose (74-99) mg/dL Calcium (8.4-10.2) mg/dL Total Bilirubin (0.2-1.3) mg/dL AST (14-36) U/L ALT (9-52) U/L Alkaline Phosphatase (38-126) U/L Total Protein (6.3-8.2) g/dL Albumin (3.5-5.0) g/dL Urine Color Yellow Urine Appearance Clear (Clear) Urine pH 7.0 (5.0-8.0) Ur Specific [place] 1.026 (1.001-1.035) Urine Protein Negative (Negative) Urine Glucose (UA) Negative (Negative) Urine Ketones Negative (Negative) Urine Blood Negative (Negative) Urine Nitrite Negative (Negative) Urine Bilirubin Negative (Negative) Urine Urobilinogen <2.0 (<2.0) mg/dL Ur Leukocyte Esterase Negative (Negative) Stool Occult Blood (Negative) C. difficile (EIA) Intrp Negative (Negative) Disposition Is patient prescribed a controlled substance at d/c from ED?: No <Safia Vance - Last Filed: 09/02/18 22:54> <Candelaria Cardenas - Last Filed: 09/04/18 06:08> Clinical Impression: Diarrhea, Abdominal pain Disposition: HOME SELF-CARE Condition: Stable Instructions (If sedation given, give patient instructions): Irritable Bowel Syndrome (ED), Abdominal Pain (ED) Additional Instructions: Please return to the Emergency Department if symptoms worsen or any other concerns. Follow up with GI in 1 to 3 days. Prescriptions: Diphenoxylate HCl/Atropine [Lomotil 2.5-0.025 mg Tablet] 1 tab PO BID PRN 5 Days #20 tab PRN Reason: Diarrhea Referrals: Augusta Freeman III, MD [Primary Care Provider] - 1-2 days Vickie Coleman MD [STAFF PHYSICIAN] - 1-2 days
[2018-09-02 20:58] LABS: Basophils % (A) 0 %; Eosinophils % (A) 0 %; HCT 43.6 % (34.0-46.0); HGB 15.2 gm/dL (11.4-16.0); Lymphocytes # (A) 2.8 k/uL (1.0-4.8); Lymphocytes % (A) 30 %; MCHC 34.8 g/dL (31.0-37.0); MCV 83.5 fL (80.0-100.0); Monocytes # (A) 0.4 k/uL (0-1.0); Monocytes % (A) 5 %; Neutrophils % (A) 64 %; Platelet Count 265 k/uL (150-450); RBC 5.22 m/uL (3.80-5.40); WBC 9.4 k/uL (3.8-10.6)
[2018-09-02 21:13] LABS: Albumin 5.2 g/dL (3.5-5.0); Calcium 9.9 mg/dL (8.4-10.2); Total Bilirubin 0.5 mg/dL (0.2-1.3); Total Protein 8.3 g/dL (6.3-8.2)
--- NOTE | 2018-09-02 21:41 | XR ---
EXAMINATION TYPE: XR KUB DATE OF EXAM: 09/02/2018 CLINICAL DATA: 32 year-old female with lower abdominal pain, PHH COMPARISON: None FINDINGS: Lung bases are clear. No evidence for free intraperitoneal air. Scattered small air-fluid levels throughout the colon. No dilated small bowel loops. Phlebolith in the lower left side of the pelvis. IMPRESSION: 1. Scattered small air-fluid levels in the colon suggesting liquid stool. Correlate for generalized i leus or enteritis. 2. No evidence of bowel obstruction or free intraperitoneal air.
[2018-09-02 22:40] LABS: Appearance,Urine Clear (Clear); Bilirubin,Urine Negative (Negative); Blood,Urine Negative (Negative); Color,Urine Yellow; Glucose,Urine (UA) Negative (Negative); Ketones,Urine Negative (Negative); Leukocyte Esterase,Urine Negative (Negative); Nitrite,Urine Negative (Negative); Protein,Urine Negative (Negative); Specific Gravity,Urine 1.026 (1.001-1.035); Urobilinogen,Urine <2.0 mg/dL (<2.0)
[2018-09-02 23:06] VITALS: PULSE 98; TEMP 98.8
== END 2018-09-02 23:06 | disposition home or self-care (01) ==
LOC: EC 17:41
DX: R19.7 Diarrhea, unspecified (principal); R10.84 Generalized abdominal pain; R19.12 Hyperactive bowel sounds; R11.0 Nausea; K21.9 Gastro-esophageal reflux disease without esophagitis; F17.200 Nicotine dependence, unspecified, uncomplicated; Z79.899 Other long term (current) drug therapy; Z87.19 Personal history of other diseases of the digestive system
CPT/HCPCS: 36415; 74018; 80053; 81003; 82272; 85025; 87045; 87046; 87324; 96360; 99284

== ENCOUNTER → 2019-11-05 | Outpatient (CLI) | payer BC | END | disposition home or self-care (01) | LOC: LABWHC1 09:03 | PROVIDERS: ATTEND Family Medicine | DX: R43.8 Other disturbances of smell and taste (principal); R50.9 Fever, unspecified | CPT/HCPCS: U0003; C9803 ==

== ENCOUNTER → 2019-11-06 | Outpatient (CLI) | payer BC ==
--- NOTE | 2019-11-06 14:46 | XR ---
2 view abdomen HISTORY: Pain 2 views the abdomen submitted and correlated KUB 09/02/2018 There is no evident pneumoperitoneum or bowel obstruction. Air-fluid levels are noted without bowel d istention. No pathologic calcification. Probable phleboliths within the pelvis. IMPRESSION: Correlate for ileus, enteritis, follow-up as indicated.
== END | disposition home or self-care (01) ==
LOC: RADXRMAIN 13:30
PROVIDERS: ATTEND Nurse Practitioner Family
DX: R10.10 Upper abdominal pain, unspecified (principal)
CPT/HCPCS: 74019

== ENCOUNTER → 2019-11-07 | Outpatient (CLI) | payer BC | END | disposition home or self-care (01) | LOC: LABWHC1 13:22 | PROVIDERS: ATTEND Nurse Practitioner Family | DX: R19.7 Diarrhea, unspecified (principal) | CPT/HCPCS: 83630; 87045; 87046 ==

== ENCOUNTER 2020-01-06 08:44 | Day surgery (SDC) | payer BC ==
[2020-01-03 10:55] VITALS: BMI 29.8
[~2020-01-06 08:44] MED LIST: LACTATED RINGERS 1,000 ML IV SCH; LIDOCAINE 1% (10MG/ML) FOR IV START INTRADERMA PRN
[2020-01-06 09:45] VITALS: TEMP 98.4
[2020-01-06] MEDS ORDERED: MIDAZOLAM 2 MG/2 ML VIAL ONE (09:51)
[2020-01-06] MEDS ORDERED: PROPOFOL 10 MG/ML 20 ML VIAL IV ONE (09:51)
[2020-01-06] MEDS ORDERED: LIDOCAINE 1% INJ 10MG/ML (20 ML MDV) ONE (09:51)
[2020-01-06 10:12] VITALS: PULSE 61; RESP 16
--- NOTE | 2020-01-06 10:15 | P.PCN ---
Date of Procedure: 01/06/20 Description of Procedure: BRIEF HISTORY: Patient is a 34-year-old female presenting for outpatient esophagogastroduodenoscopy for evaluation of heartburn. Patient reports long- standing history of GERD, on omeprazole therapy. Over the past month she has had increased nausea and feels this has improved recently. PROCEDURE PERFORMED: Esophagogastroduodenoscopy with biopsy. PREOPERATIVE DIAGNOSIS: Heartburn, GERD. ESTIMATED BLOOD LOSS: Minimal. IV sedation per anesthesia. PROCEDURE: After informed consent was obtained, the patient was brought into the endoscopy unit. IV sedation was administered by Anesthesia under continuous monitoring. Initially the Olympus GIF-190 video endoscope was inserted into the mouth. Esophagus intubated without any difficulty. It was gradually advanced into the stomach and duodenum and carefully examined. The bulb and the second part of the duodenum appeared normal, with biopsies taken to rule out celiac sprue. The scope at this time was withdrawn to the stomach, adequately insufflated with air, and upon careful examination, mucosa of the antrum, body, cardia and the fundus appeared normal, except for some mild scattered erythema in the antrum and body suggestive of mild gastritis with biopsies of the antrum and body taken. There were also a few diminutive polyps consistent with fundic gland polyps. The scope was then withdrawn into the esophagus. The GE junction was located at 36 cm from the incisors and biopsied. A small 2 cm hiatal hernia was noted. The esophagus appeared normal. There were no erosions or ulcerations seen and the patient tolerated the procedure well. IMPRESSION: 1. Mild gastritis. 2. Biopsies of the GE junction, duodenum and antrum body. 3. Small hiatal hernia.. RECOMMENDATIONS: The findings of this examination were discussed with the patient and her family. Okay to resume diet. Okay to resume medications. Await pathology from biopsies. Continue current medical management.
[2020-01-06 10:34] VITALS: BP 118/73
== END 2020-01-06 11:01 | disposition home or self-care (01) ==
LOC: ORWHC2ENDO 08:44
PROVIDERS: ATTEND Internal Medicine
DX: K29.50 Unspecified chronic gastritis without bleeding (principal); K44.9 Diaphragmatic hernia without obstruction or gangrene; K21.9 Gastro-esophageal reflux disease without esophagitis; I10 Essential (primary) hypertension; I73.00 Raynaud's syndrome without gangrene; Z79.899 Other long term (current) drug therapy; Z98.890 Other specified postprocedural states; F17.210 Nicotine dependence, cigarettes, uncomplicated; Z79.1 Long term (current) use of non-steroidal anti-inflammatories (NSAID)
CPT/HCPCS: 81025; 88305; 43239; J2250; J2001; J2704

== ENCOUNTER → 2020-11-05 | Outpatient (CLI) | payer BC | END | disposition home or self-care (01) | LOC: LABWHC1 11:16 | PROVIDERS: ATTEND Emergency Medicine | DX: Z20.822 Contact with and (suspected) exposure to COVID-19 (principal) | CPT/HCPCS: 87635; C9803 ==

== ENCOUNTER → 2020-11-06 | Outpatient (CLI) | payer BC | END | disposition home or self-care (01) | LOC: LABWHC1 15:17 | PROVIDERS: ATTEND Emergency Medicine | DX: Z01.812 Encounter for preprocedural laboratory examination (principal); Z20.822 Contact with and (suspected) exposure to COVID-19 | CPT/HCPCS: 87635; C9803 ==